=== PATIENT | female | born 1990 | race Caucasian/White ===

== ENCOUNTER 2020-05-10 15:02 | Emergency (ER) | payer MEDICAID ==
[~2020-05-10] VITALS: Ht 157.5 cm; Wt 52.2 kg
[~2020-05-10 15:02] MED LIST: BACTRIM DS TAB1 EACH PO; HYDROCODON-ACE1 EAC7 PO; IBUPROFEN 800800 M1 PO; K-DUR 20 MEQ T20 MEQ PO; NOHOMEMEDICATIONS; NORCO 5-325 TA1 EACH PO; SERTRALINE HCL50 MG; XANAX 0.25 MG0.25 MG PO
[2020-05-10] MEDS ORDERED: APAP W/CODEINE1 TA2 PO (16:16)
[2020-05-10] MEDS ORDERED: IBUPROFEN 800800 M1 PO (16:16)
[2020-05-10] MEDS ORDERED: CIPROFLOXIN HC2.5 M1 OPHTHALMIC (16:16)
[2020-05-10 16:28] VITALS: BP 112/67
== END 2020-05-10 16:29 | disposition home or self-care (01) ==
LOC: M.ERS 15:02
DX: H10.9 Unspecified conjunctivitis (principal); I10 Essential (primary) hypertension